=== PATIENT | male | born 1995 | race Caucasian/White ===

== ENCOUNTER 2022-12-12 08:48 | Outpatient (CLI) | payer MEDICAID | END 2022-12-12 20:24 | disposition home or self-care (01) | LOC: MUS 08:48 | PROVIDERS: ATTEND Surgery | DX: R10.10 Upper abdominal pain, unspecified (principal) | CPT/HCPCS: 76705 ==

== ENCOUNTER 2023-05-01 08:25 | Emergency (ER) | payer SELFPAY ==
[~2023-05-01] VITALS: Ht 167.6 cm; Wt 59.0 kg
[2023-05-01 08:40] VITALS: BP 131/76; PULSE 81; RESP 18; TEMP 97; O2SAT 98
--- NOTE | 2023-05-01 08:45 | NUR ---
PT AMBULATED TO BED 12
--- NOTE | 2023-05-01 09:08 | NUR ---
MD AT BEDSIDE ASSESSING PT
[2023-05-01] MEDS ORDERED: CYCL-711 PO (09:38)
[2023-05-01] MEDS ORDERED: IBUP-2218 PO (09:38)
[2023-05-01] MEDS ORDERED: LIDOCAINE 5% 1 EA PATCH TP ONE (09:40)
--- NOTE | 2023-05-01 10:07 | NUR ---
reassessment of lidocaine patch NADR.
[2023-05-01 10:10] VITALS: BP 130/75; PULSE 79; RESP 18; TEMP 97.3; O2SAT 99
--- NOTE | 2023-05-01 10:10 | NUR ---
Patient discharged with v/s stable. Written and verbal after care instructions given and explained. Patient alert, oriented and verbalized understanding of instructions. Ambulatory with steady gait. All questions addressed prior to discharge. ID band removed. Patient advised to follow up with PMD. Rx of flexeril,ibuprofen given. Patient educated on indication of medication including possible reaction and side effects. Opportunity to ask questions provided and answered.
== END 2023-05-01 10:10 | disposition home or self-care (01) ==
LOC: MED 08:25
DX: M54.50 Low back pain, unspecified (principal); M62.830 Muscle spasm of back; Z79.899 Other long term (current) drug therapy; V89.2XXA Person injured in unspecified motor-vehicle accident, traffic, initial encounter; Y93.89 Activity, other specified; Y92.89 Other specified places as the place of occurrence of the external cause; Y99.8 Other external cause status
CPT/HCPCS: 99283

== ENCOUNTER 2023-05-11 22:17 | Emergency (ER) | payer OTHER ==
[~2023-05-11] VITALS: Ht 167.6 cm; Wt 64.4 kg
[~2023-05-11 22:17] MED LIST: CYCL-711 PO; IBUP-2218 PO
[2023-05-11 22:56] VITALS: BP 123/66; PULSE 70; RESP 18; TEMP 97.5; O2SAT 99
[2023-05-11 23:00] VITALS: O2SAT 99
--- NOTE | 2023-05-11 23:07 | NUR ---
PT TRIAGED AND AMBULATED TO WR; PT IN STABLE CONDITION.
--- NOTE | 2023-05-12 01:19 | NUR ---
PT AMBULATED TO BED 07
--- NOTE | 2023-05-12 01:45 | NUR ---
Patient being evaluated by physician at bedside.
[2023-05-12] MEDS ORDERED: NAPROXEN 500 MG TAB PO STA (02:00)
--- NOTE | 2023-05-12 03:15 | NUR ---
PT WAS MEDICATED AND DISCHARGED.
--- NOTE | 2023-05-12 03:15 | NUR ---
Patient discharged with v/s stable. Written and verbal after care instructions given and explained. Patient verbalized understanding. Ambulatory with steady gait. All questions addressed prior to discharge. Advised to follow up with PMD.
== END 2023-05-12 03:15 | disposition home or self-care (01) ==
LOC: MED 22:17
DX: S39.012A Strain of muscle, fascia and tendon of lower back, initial encounter (principal); V49.88XA Car occupant (driver) (passenger) injured in other specified transport accidents, initial encounter; Y93.89 Activity, other specified; Y92.89 Other specified places as the place of occurrence of the external cause; Y99.8 Other external cause status
CPT/HCPCS: 72100; 99283